=== PATIENT | male | born 1975 | race Caucasian/White ===

== ENCOUNTER 2024-10-20 10:08 | Outpatient (CLI) | payer BC | END 2024-10-20 10:09 | disposition home or self-care (01) | LOC: CSHULT 10:08 | PROVIDERS: ATTEND Physician Assistant Medical | DX: R93.2 Abnormal findings on diagnostic imaging of liver and biliary tract (principal); K59.09 Other constipation; R68.81 Early satiety; K62.6 Ulcer of anus and rectum; K76.0 Fatty (change of) liver, not elsewhere classified | CPT/HCPCS: 76705 ==